=== PATIENT | female | born 1995 | race Caucasian/White ===

== ENCOUNTER → 2019-05-04 | Emergency (ER) | payer OTHER ==
[~2019-05-04] VITALS: Ht 167.6 cm; Wt 67.3 kg
[~2019-05-04] MED LIST: AMOX500C2 PO; FLUC150T5 PO; GUAI120015 PO; METH4TAB81 PO; PANT40TA39 PO; PYRI25TA4 PO; ketorolac tromethamine 15mg/ml inj. IM ONE
[2019-05-04 17:07] VITALS: BP 124/66
== END | disposition home or self-care (01) ==
LOC: ER 16:14
DX: S29.012A Strain of muscle and tendon of back wall of thorax, initial encounter (principal); G44.209 Tension-type headache, unspecified, not intractable; G43.909 Migraine, unspecified, not intractable, without status migrainosus; R07.89 Other chest pain; J45.909 Unspecified asthma, uncomplicated; Z88.2 Allergy status to sulfonamides; Z88.0 Allergy status to penicillin; Z91.013 Allergy to seafood; Z91.010 Allergy to peanuts; Z79.899 Other long term (current) drug therapy; V87.7XXA Person injured in collision between other specified motor vehicles (traffic), initial encounter; Y93.89 Activity, other specified; Y92.488 Other paved roadways as the place of occurrence of the external cause; Y99.8 Other external cause status
CPT/HCPCS: 96372; 99283; J1885

== ENCOUNTER 2019-11-21 16:35 | Emergency (ER) | payer BC, OTHER ==
[~2019-11-21] VITALS: Ht 167.6 cm; Wt 61.0 kg
[~2019-11-21 16:35] MED LIST changes: -ketorolac tromethamine 15mg/ml inj. IM ONE
[2019-11-21 17:13] VITALS: BP 101/61
[2019-11-21 18:01] LABS: URINE HCG NEGATIVE (NEG)
[2019-11-21 18:02] LABS: CLARITY,URINE SLIGHTLY CLOUDY (Clear); COLOR,URINE YELLOW (Yellow); GLUCOSE, URINE NEGATIVE (Neg); KETONES,URINE 15 mg/dl (Neg); LEUKOCYTE ESTERASE ,URINE LARGE (Neg); NITRITES, URINE NEGATIVE (Neg); OCCULT BLOOD,URINE MODERATE (Neg); PROTEIN,URINE TRACE mg/dl (Neg)
[2019-11-21 18:03] LABS: UA COLLECTION TYPE CLN CATCH MIDSTREAM
[2019-11-21 18:15] LABS: MUCUS STRANDS NONE SEEN /LPF (Neg); SQUAMOUS EPITHELIAL CELL,UR MODERATE /LPF (FEW)
[2019-11-21 18:17] LABS: BACTERIA,URINE 4+ /HPF (Neg); WBC,URINE 20-30 /HPF (0-4)
[2019-11-21] MEDS ORDERED: ondansetron/PF 4mg/2ml inj IV ONE (18:40)
[2019-11-21] MEDS ORDERED: ketorolac trometh. 30mg/ml inj. IV ONE (18:40)
[2019-11-21] MEDS ORDERED: normal saline 1000ML IV soln IVB ONE (18:40)
--- NOTE | 2019-11-21 18:45 | NUR ---
CT HERE TO TAKE PT TO CT [id number] WHEEL CHAIR
--- NOTE | 2019-11-21 18:57 | NUR ---
PT BACK FROM CT
[2019-11-21 19:15] LABS: BASOPHILS % (AUTO) 0.3 % (0-1); EOSINOPHILS % (AUTO) 0.1 % (0-6); HEMATOCRIT 34.7 % (35.0-45.0); HEMOGLOBIN 11.4 g/dl (12.0-16.0); LYMPHOCYTES # (AUTO) 1.6 X10'3 (1.1-4.8); LYMPHOCYTES % (AUTO) 12.7 % (21-51); MEAN CORPUSCULAR HEMOGLOBIN 25.4 PG (27.0-31.0); MEAN CORPUSCULAR HGB CONC 32.9 g/dL (33.0-36.5); MEAN CORPUSCULAR VOLUME 77.3 FL (78-98); MEAN PLATELET VOLUME 9.9 FL (7.4-10.4); MONOCYTES # (AUTO) 0.8 X10'3 (0-0.9); MONOCYTES % (AUTO) 6.3 % (2-12); NEUTROPHILS # (AUTO) 10.4 X10'3 (1.8-7.7); NEUTROPHILS % (AUTO) 80.6 % (42-75); PLATELET COUNT 203 X10'3 (140-440); RED BLOOD COUNT 4.49 X10'6 (4.20-5.60); RED CELL DISTRIBUTION WIDTH 15.8 % (11.5-14.5); WHITE BLOOD COUNT 12.9 X10'3 (4.5-11.0)
[2019-11-21 19:26] LABS: ALANINE AMINOTRANSFERASE 32 U/L (12-78); ALBUMIN 3.9 G/DL (3.4-5.0); ALBUMIN/GLOBULIN RATIO 0.8 (1.1-1.5); ALKALINE PHOSPHATASE 71 IU/L (46-116); ANION GAP 12 (8-16); ASPARTATE AMINO TRANSFERASE 24 U/L (10-37); BILIRUBIN,TOTAL 0.5 MG/DL (0.1-1.0); BLOOD UREA NITROGEN 11 MG/DL (7-18); BUN/CREATININE RATIO 12.5 (6.6-38.0); CALCIUM 9.3 MG/DL (8.5-10.1); CHLORIDE 100 MMOL/L (99-107); CREATININE 0.88 MG/DL (0.40-0.90); GLUCOSE 117 MG/DL (70-104); POTASSIUM 3.8 MMOL/L (3.5-5.1); SODIUM 137 MMOL/L (135-145); TOTAL CARBON DIOXIDE 24.7 MMOL/L (24-32); TOTAL PROTEIN 8.5 G/DL (6.4-8.2); eGFR 78 ML/MIN
[2019-11-21] MEDS ORDERED: CefTRIAXone/D5W-Rocephin 1gm 50 ML IV ONE (19:35)
[2019-11-21] MEDS ORDERED: HYDR-4383 PO (19:57)
[2019-11-21] MEDS ORDERED: CEPH250T PO (19:57)
[2019-11-21] MEDS ORDERED: KETO10TA2 PO (19:58)
== END 2019-11-21 20:33 | disposition home or self-care (01) ==
LOC: ER 16:36
DX: N12 Tubulo-interstitial nephritis, not specified as acute or chronic (principal); R11.2 Nausea with vomiting, unspecified; J45.909 Unspecified asthma, uncomplicated; Z87.442 Personal history of urinary calculi; Z88.2 Allergy status to sulfonamides; Z88.0 Allergy status to penicillin; Z91.013 Allergy to seafood; Z91.010 Allergy to peanuts; Z79.899 Other long term (current) drug therapy
CPT/HCPCS: 36415; 74176; 80053; 81001; 81025; 85025; 87088; 96361; 96365; 96375; 99284; J0696; J1885; J2405; J7030

== ENCOUNTER 2020-01-16 10:49 | Emergency (ER) | payer BC ==
[~2020-01-16] VITALS: Ht 167.6 cm; Wt 58.7 kg
[~2020-01-16 10:49] MED LIST changes: +HYDR-4383 PO; +KETO10TA2 PO
[2020-01-16 11:26] LABS: BASOPHILS % (AUTO) 0.4 % (0-1); EOSINOPHILS % (AUTO) 0.1 % (0-6); HEMATOCRIT 35.8 % (35.0-45.0); HEMOGLOBIN 11.9 g/dl (12.0-16.0); LYMPHOCYTES # (AUTO) 1.2 X10'3 (1.1-4.8); LYMPHOCYTES % (AUTO) 12.8 % (21-51); MEAN CORPUSCULAR HEMOGLOBIN 25.5 PG (27.0-31.0); MEAN CORPUSCULAR HGB CONC 33.1 g/dL (33.0-36.5); MEAN CORPUSCULAR VOLUME 76.9 FL (78-98); MEAN PLATELET VOLUME 9.3 FL (7.4-10.4); MONOCYTES # (AUTO) 0.7 X10'3 (0-0.9); MONOCYTES % (AUTO) 7.7 % (2-12); NEUTROPHILS # (AUTO) 7.5 X10'3 (1.8-7.7); PLATELET COUNT 140 X10'3 (140-440); RED BLOOD COUNT 4.66 X10'6 (4.20-5.60); RED CELL DISTRIBUTION WIDTH 16.7 % (11.5-14.5); WHITE BLOOD COUNT 9.4 X10'3 (4.5-11.0)
[2020-01-16 11:37] LABS: ALANINE AMINOTRANSFERASE 26 U/L (12-78); ALBUMIN 3.8 G/DL (3.4-5.0); ALBUMIN/GLOBULIN RATIO 0.8 (1.1-1.5); ALKALINE PHOSPHATASE 60 IU/L (46-116); ANION GAP 11 (8-16); ASPARTATE AMINO TRANSFERASE 13 U/L (10-37); BILIRUBIN,TOTAL 0.6 MG/DL (0.1-1.0); BLOOD UREA NITROGEN 12 MG/DL (7-18); CHLORIDE 99 MMOL/L (99-107); CREATININE 0.86 MG/DL (0.40-0.90); GLUCOSE 102 MG/DL (70-104); LIPASE 54 U/L (73-393); POTASSIUM 3.3 MMOL/L (3.5-5.1); SODIUM 134 MMOL/L (135-145); TOTAL CARBON DIOXIDE 24.2 MMOL/L (24-32); TOTAL PROTEIN 8.5 G/DL (6.4-8.2); eGFR 80 ML/MIN
[2020-01-16] MEDS ORDERED: ondansetron 4mg rapidly disintigrating tab PO ONE (11:50)
[2020-01-16 11:53] LABS: URINE HCG NEGATIVE (NEG)
[2020-01-16 12:06] LABS: COLOR,URINE YELLOW (Yellow); GLUCOSE, URINE NEGATIVE (Neg); KETONES,URINE >=80 mg/dl (Neg); LEUKOCYTE ESTERASE ,URINE MODERATE (Neg); NITRITES, URINE NEGATIVE (Neg); OCCULT BLOOD,URINE LARGE (Neg); PROTEIN,URINE 100 mg/dl (Neg)
[2020-01-16 12:09] LABS: UA COLLECTION TYPE CLN CATCH MIDSTREAM
[2020-01-16 12:10] LABS: CLARITY,URINE CLOUDY (Clear)
[2020-01-16 12:17] LABS: BACTERIA,URINE 2+ /HPF (Neg); MUCUS STRANDS FEW /LPF (Neg); RBC,URINE 20-50 /HPF (0-2); WBC,URINE TNTC /HPF (0-4)
[2020-01-16 12:18] LABS: WBC CLUMPS,URINE FEW /HPF (NEGATIVE)
[2020-01-16 12:20] LABS: SQUAMOUS EPITHELIAL CELL,UR MODERATE /LPF (FEW)
--- NOTE | 2020-01-16 12:36 | NUR ---
US tech at bedside.
[2020-01-16] MEDS ORDERED: ketorolac tromethamine 15mg/ml inj. IM ONE (13:35)
[2020-01-16] MEDS ORDERED: NITR100C6 PO (13:49)
[2020-01-16] MEDS ORDERED: L. R1CAP4 PO (13:49)
[2020-01-16] MEDS ORDERED: IBUP-1985 PO (13:49)
[2020-01-16] MEDS ORDERED: CIPR-230 PO (13:49)
[2020-01-16] MEDS ORDERED: PHEN-824 PO (13:49)
[2020-01-16 14:05] VITALS: BP 108/80
== END 2020-01-16 14:06 | disposition home or self-care (01) ==
LOC: ER 10:50
DX: N92.0 Excessive and frequent menstruation with regular cycle (principal); N39.0 Urinary tract infection, site not specified; R11.10 Vomiting, unspecified; J45.909 Unspecified asthma, uncomplicated; F12.90 Cannabis use, unspecified, uncomplicated; Z88.2 Allergy status to sulfonamides; Z88.0 Allergy status to penicillin; Z91.013 Allergy to seafood; Z91.048 Other nonmedicinal substance allergy status; Z91.010 Allergy to peanuts; Z79.2 Long term (current) use of antibiotics; Z79.899 Other long term (current) drug therapy
CPT/HCPCS: 36415; 76856; 80053; 81001; 81025; 83690; 85025; 85610; 87077; 87088; 87186; 87210; 96372; 99284; J1885

== ENCOUNTER 2023-01-24 10:23 | Emergency (ER) | payer BC, MEDICAID ==
[~2023-01-24] VITALS: Ht 165.1 cm; Wt 63.6 kg
[~2023-01-24 10:23] MED LIST changes: +FLUC150T46 PO; -FLUC150T5 PO; +IBUP-1985 PO; +L. R1CAP4 PO; +NITR100C6 PO; +PHEN-824 PO
[2023-01-24] MEDS ORDERED: normal saline 1000ML IV soln IVB ONE (11:55)
[2023-01-24 12:00] VITALS: BP 114/70
[2023-01-24 12:39] LABS: ALANINE AMINOTRANSFERASE 18 U/L (12-78); ALBUMIN 4.2 G/DL (3.4-5.0); ALBUMIN/GLOBULIN RATIO 1.1 (1.1-1.5); ALKALINE PHOSPHATASE 63 IU/L (46-116); ANION GAP 13 (8-16); ASPARTATE AMINO TRANSFERASE 19 U/L (10-37); BILIRUBIN,TOTAL 0.6 MG/DL (0.1-1.0); BLOOD UREA NITROGEN 6 MG/DL (7-18); BUN/CREATININE RATIO 9.5 (6.6-38.0); CALCIUM 9.1 MG/DL (8.5-10.1); CHLORIDE 100 MMOL/L (99-107); CREATININE 0.63 MG/DL (0.40-0.90); GLUCOSE 90 MG/DL (70-104); POTASSIUM 3.2 MMOL/L (3.5-5.1); SODIUM 135 MMOL/L (135-145); TOTAL CARBON DIOXIDE 22.3 MMOL/L (24-32); TOTAL PROTEIN 7.9 G/DL (6.4-8.2); eGFR > 90 ML/MIN
[2023-01-24 12:48] LABS: BASOPHILS % (AUTO) 0.1 % (0-1); EOSINOPHILS # (AUTO) 0.1 X10'3 (0-0.9); EOSINOPHILS % (AUTO) 0.4 % (0-6); HEMATOCRIT 35.3 % (35.0-45.0); HEMOGLOBIN 11.4 g/dl (12.0-16.0); LYMPHOCYTES # (AUTO) 1.4 X10'3 (1.1-4.8); LYMPHOCYTES % (AUTO) 9.7 % (21-51); MEAN CORPUSCULAR HEMOGLOBIN 27.1 PG (27.0-31.0); MEAN CORPUSCULAR HGB CONC 32.3 g/dL (33.0-36.5); MEAN CORPUSCULAR VOLUME 83.7 FL (78-98); MEAN PLATELET VOLUME 9.9 FL (7.4-10.4); MONOCYTES # (AUTO) 0.9 X10'3 (0-0.9); MONOCYTES % (AUTO) 6.5 % (2-12); NEUTROPHILS # (AUTO) 11.8 X10'3 (1.8-7.7); NEUTROPHILS % (AUTO) 83.3 % (42-75); PLATELET COUNT 176 X10'3 (140-440); RED BLOOD COUNT 4.21 X10'6 (4.20-5.60); RED CELL DISTRIBUTION WIDTH 14.9 % (11.5-14.5); WHITE BLOOD COUNT 14.1 X10'3 (4.5-11.0)
[2023-01-24 12:49] LABS: CLARITY,URINE CLEAR (Clear); COLOR,URINE STRAW (Yellow); GLUCOSE, URINE NEGATIVE (Neg); KETONES,URINE 15 mg/dl (Neg); LEUKOCYTE ESTERASE ,URINE NEGATIVE (Neg); NITRITES, URINE NEGATIVE (Neg); OCCULT BLOOD,URINE SMALL (Neg); PROTEIN,URINE NEGATIVE (Neg); UROBILINOGEN,URINE 0.2 E.U/dL (0.2-1.0)
[2023-01-24 12:51] LABS: UA COLLECTION TYPE CLN CATCH MIDSTREAM
[2023-01-24 13:03] LABS: BACTERIA,URINE FEW /HPF (Neg); RBC,URINE 0-2 /HPF (0-2); SQUAMOUS EPITHELIAL CELL,UR MODERATE /LPF (FEW); WBC,URINE 0-4 /HPF (0-4)
[2023-01-24] MEDS ORDERED: ondansetron/PF 4mg/2ml inj IV ONE (13:05)
[2023-01-24] MEDS ORDERED: acetaminophen 325mg tablet PO ONE (13:05)
[2023-01-24] MEDS ORDERED: ONDA4TAB12 PO (13:57)
== END 2023-01-24 14:21 | disposition home or self-care (01) ==
LOC: ER 10:24
DX: J06.9 Acute upper respiratory infection, unspecified (principal); J45.909 Unspecified asthma, uncomplicated; F12.90 Cannabis use, unspecified, uncomplicated; Z87.442 Personal history of urinary calculi; Z88.2 Allergy status to sulfonamides; Z88.0 Allergy status to penicillin; Z91.013 Allergy to seafood; Z88.6 Allergy status to analgesic agent; Z91.010 Allergy to peanuts; Z79.899 Other long term (current) drug therapy
CPT/HCPCS: 36415; 71045; 80053; 81001; 85025; 87502; 87503; 96361; 96374; 99284; J2405; J7030; 99283

== ENCOUNTER 2024-02-10 14:00 | Emergency (ER) | payer MEDICAID ==
[~2024-02-10] VITALS: Ht 167.6 cm; Wt 68.0 kg
[~2024-02-10 14:00] MED LIST changes: +ONDA4TAB12 PO
[2024-02-10] MEDS ORDERED: IBUP-1985 PO (15:21)
[2024-02-10] MEDS ORDERED: ONDA8TAB13 PO (15:21)
[2024-02-10 15:56] VITALS: BP 128/74; PULSE 81; RESP 17; TEMP 98.1; O2SAT 100
== END 2024-02-10 16:01 | disposition home or self-care (01) ==
LOC: ER 14:01
DX: S06.0X0A Concussion without loss of consciousness, initial encounter (principal); S00.83XA Contusion of other part of head, initial encounter; J45.909 Unspecified asthma, uncomplicated; F12.90 Cannabis use, unspecified, uncomplicated; Z88.2 Allergy status to sulfonamides; Z88.0 Allergy status to penicillin; Z91.013 Allergy to seafood; Z91.010 Allergy to peanuts; Z79.2 Long term (current) use of antibiotics; Z79.1 Long term (current) use of non-steroidal anti-inflammatories (NSAID); Z79.899 Other long term (current) drug therapy; X58.XXXA Exposure to other specified factors, initial encounter; Y93.89 Activity, other specified; Y92.89 Other specified places as the place of occurrence of the external cause; Y99.8 Other external cause status
CPT/HCPCS: 70450; 70486; 99284

== ENCOUNTER 2025-02-15 16:29 | Emergency (ER) | payer MEDICAID ==
[~2025-02-15] VITALS: Ht 165.1 cm; Wt 83.8 kg
[~2025-02-15 16:29] MED LIST changes: +ONDA-243 PO; +ONDA-245 PO; -ONDA4TAB12 PO
[2025-02-15 16:57] LABS: URINE HCG NEGATIVE (NEG)
[2025-02-15 16:59] LABS: BILIRUBIN,URINE NEGATIVE (Neg); CLARITY,URINE CLEAR (Clear); COLOR,URINE YELLOW (Yellow); GLUCOSE, URINE NEGATIVE (Neg); KETONES,URINE TRACE mg/dl (Neg); LEUKOCYTE ESTERASE ,URINE NEGATIVE (Neg); NITRITES, URINE NEGATIVE (Neg); OCCULT BLOOD,URINE NEGATIVE (Neg); PH,URINE 6.5 (4.8-8.0); PROTEIN,URINE NEGATIVE (Neg); UROBILINOGEN,URINE 0.2 E.U/dL (0.2-1.0)
[2025-02-15 17:00] LABS: UA COLLECTION TYPE CLN CATCH MIDSTREAM
[2025-02-15 17:23] LABS: BASOPHILS % (AUTO) 0.1 % (0-1); EOSINOPHILS # (AUTO) 0.1 X10'3 (0-0.9); EOSINOPHILS % (AUTO) 0.8 % (0-6); HEMOGLOBIN 10.8 g/dl (12.0-16.0); LYMPHOCYTES # (AUTO) 2.3 X10'3 (1.1-4.8); LYMPHOCYTES % (AUTO) 31.4 % (21-51); MEAN CORPUSCULAR HEMOGLOBIN 23.8 PG (27.0-31.0); MEAN CORPUSCULAR HGB CONC 31.8 g/dL (33.0-36.5); MEAN CORPUSCULAR VOLUME 74.7 FL (78-98); MEAN PLATELET VOLUME 9.4 FL (7.4-10.4); MONOCYTES # (AUTO) 0.5 X10'3 (0-0.9); NEUTROPHILS # (AUTO) 4.6 X10'3 (1.8-7.7); NEUTROPHILS % (AUTO) 61.7 % (42-75); PLATELET COUNT 221 X10'3 (140-440); RED BLOOD COUNT 4.54 X10'6 (4.20-5.60); RED CELL DISTRIBUTION WIDTH 17.4 % (11.5-14.5); WHITE BLOOD COUNT 7.5 X10'3 (4.5-11.0)
[2025-02-15 17:29] LABS: ALANINE AMINOTRANSFERASE 24 U/L (12-78); ALBUMIN 4.2 G/DL (3.4-5.0); ALKALINE PHOSPHATASE 71 IU/L (46-116); ANION GAP 7 (8-16); ASPARTATE AMINO TRANSFERASE 19 U/L (10-37); BILIRUBIN,TOTAL 0.3 MG/DL (0.1-1.0); BLOOD UREA NITROGEN 11 MG/DL (7-18); BUN/CREATININE RATIO 14.7 (10.0-20.0); CHLORIDE 101 MMOL/L (99-107); CREATININE 0.75 MG/DL (0.40-0.90); GLUCOSE 98 MG/DL (70-104); LIPASE 47 U/L (16-77); POTASSIUM 3.9 MMOL/L (3.5-5.1); SODIUM 137 MMOL/L (135-145); TOTAL CARBON DIOXIDE 28.7 MMOL/L (24-32); TOTAL PROTEIN 8.4 G/DL (6.4-8.2); eCRCL 99 ML/MIN; eGFR > 90 ML/MIN
[2025-02-15 18:03] VITALS: TEMP 98.4
[2025-02-15] MEDS ORDERED: ACET-2615 PO (18:52)
[2025-02-15] MEDS ORDERED: ONDA-245 PO (18:52)
[2025-02-15] MEDS ORDERED: FERR-121 PO (18:52)
[2025-02-15] MEDS: loperamide 2mg capsule PO ONE (19:14)
[2025-02-15] MEDS: ondansetron 4mg rapidly disintigrating tab PO ONE (19:15)
[2025-02-15] MEDS: acetaminophen 325mg tablet PO ONE (19:16)
[2025-02-15] MEDS: traMADol 50MG tablet PO ONE (19:16)
[2025-02-15 20:05] VITALS: BP 119/88; PULSE 60; RESP 18; O2SAT 100
== END 2025-02-15 20:08 | disposition home or self-care (01) ==
LOC: ER 16:30
DX: K52.9 Noninfective gastroenteritis and colitis, unspecified (principal); N89.8 Other specified noninflammatory disorders of vagina; D25.9 Leiomyoma of uterus, unspecified; D50.9 Iron deficiency anemia, unspecified; J45.909 Unspecified asthma, uncomplicated; F12.90 Cannabis use, unspecified, uncomplicated; Z88.0 Allergy status to penicillin; Z88.1 Allergy status to other antibiotic agents; Z88.2 Allergy status to sulfonamides; Z88.3 Allergy status to other anti-infective agents; Z88.5 Allergy status to narcotic agent; Z88.8 Allergy status to other drugs, medicaments and biological substances; Z86.018 Personal history of other benign neoplasm
CPT/HCPCS: 36415; 76830; 76856; 80053; 81003; 81025; 83690; 84145; 85025; 93976; 99284